=== PATIENT | male | born 1945 | race Caucasian/White ===

== ENCOUNTER 2017-04-20 05:42 | Inpatient (IN) | payer OTHER ==
--- NOTE | 2017-04-18 04:37 | GHP ---
[f rep st] PREOP HISTORY AND PHYSICAL CURRENT COMPLAINT: Right hip pain. HISTORY OF PRESENT ILLNESS: The patient is a 71-year-old male with increasing pain into his right hi p with decreasing range of motion. X-ray exam reveals chbw-sj-igor osteoarthritic changes to the hip . He wishes to have surgery in order to resolve the problem. ALLERGIES: He has no prior allergies. CURRENT MEDICATIONS: Include pravastatin. PRIOR MEDICAL PROBLEMS: Include IBS. PRIOR SURGERIES: He lists no prior surgeries. SOCIAL HISTORY: He is a former smoker. Does not take alcohol. PHYSICAL EXAM: His pupils are equal, round, and reactive to light. CHEST: Clear to auscultation. Heart has regular rate and rhythm. ABDOMEN: Soft and nontender. He has decreased motion to interna l and external rotation to a flexed hip. IMAGING STUDIES: An x-ray exam reveals hesz-pi-rzyz osteoarthritic changes to the right hip. PLAN: To take him to the operating room to undergo a right total hip arthroplasty. /[id number]/MODL
--- NOTE | 2017-04-19 21:22 | PDHPUP ---
History & Physical Update H&P update statement: This history and physical update is based on an assessment of the patient which was completed after admission or registration (within 24 hours), but prior to the surgery/procedure. H&P update: H&P reviewed & patient examined, no change in patient's condition since H&P completed
[2017-04-20] MEDS ORDERED: TRANEXAMIC ACID 3,000 MG in NS (SYRINGE) 50 ML IRR ONE (06:00)
[2017-04-20] MEDS ORDERED: ceFAZolin 2 GM/SWFI 2 GM/20 ML SYR IVP ONE (06:00)
[2017-04-20] MEDS ORDERED: PREGABALIN 150 MG CAP PO ONE (06:00)
[2017-04-20] MEDS ORDERED: ACETAMINOPHEN 500 MG TAB PO ONE (06:00)
[2017-04-20] MEDS ORDERED: ROPIVACAINE 0.2% 80 MG, EPINEPHrine 0.2 MG, KETOROLAC TROMETHAMINE 30 MG, morphINE 10 M... IU ONE (06:00)
[2017-04-20] MEDS ORDERED: LIDOCAINE 1% 2 ML INJ ID PRN (06:06)
[2017-04-20] MEDS ORDERED: LR 1,000 ML IV ONE (06:06)
[2017-04-20] MEDS ORDERED: BACITRACIN 50,000 UNITS/10 ML SYR IRR ONE (06:34)
[2017-04-20] MEDS ORDERED: CALCIUM CHLORIDE 1 GM/10 ML INJ ONE (06:34)
[2017-04-20] MEDS ORDERED: BUPIVACAINE/EPI 0.5% 30 ML SDV ONE (06:35)
[2017-04-20] MEDS ORDERED: POLYMYXIN B SULFATE 500,000 UNIT/10 ML SYR IRR ONE (06:35)
[2017-04-20] MEDS ORDERED: THROMBIN (BOVINE) 5,000 UNIT VIAL TP ONE (06:36)
[2017-04-20] MEDS ORDERED: fentaNYL 250 MCG/5 ML INJ ONE (07:04)
[2017-04-20] MEDS ORDERED: PROPOFOL/EMULSION 500 MG/50 ML BOTTLE IV ONE (07:04)
[2017-04-20] MEDS ORDERED: MIDAZOLAM 2 MG/2 ML VIAL IVP ONE (07:06)
[2017-04-20] MEDS ORDERED: MIDAZOLAM 2 MG/2 ML VIAL ONE (07:08)
[2017-04-20] MEDS ORDERED: ALBUTEROL 3 ML DEYVIAL IH PRN (07:40)
[2017-04-20] MEDS ORDERED: MEPERIDINE 25 MG/ML SYR IVP PRN (07:40)
[2017-04-20] MEDS ORDERED: DEXAMETHASONE 4 MG/ML VIAL IVP PRN (07:40)
[2017-04-20] MEDS ORDERED: METOCLOPRAMIDE 10 MG/2 ML VIAL IVP PRN ×2 (07:40→09:35)
[2017-04-20] MEDS ORDERED: ONDANSETRON 4 MG/2 ML VIAL IVP PRN ×2 (07:40→09:35)
[2017-04-20] MEDS ORDERED: HYDROCODONE/APAP 5/325 TAB PO PRN (07:40)
[2017-04-20] MEDS ORDERED: LR 500 ML IV PRN (07:40)
[2017-04-20] MEDS ORDERED: PROMETHAZINE HCL 25 MG/ML INJ IVP PRN ×2 (07:40→09:35)
[2017-04-20] MEDS ORDERED: fentaNYL 100 MCG/2 ML INJ IVP PRN (07:40)
[2017-04-20] MEDS ORDERED: HYDROmorphONE/DILAUDID 1 MG/ML INJ IVP PRN (07:40)
[2017-04-20] MEDS ORDERED: DIAZEPAM 10 MG/2 ML SYR IVP PRN (07:40)
[2017-04-20] MEDS ORDERED: OXYCODONE/APAP 5/325 TAB PO PRN (07:40)
[2017-04-20] MEDS ORDERED: NALOXONE HCL 0.4 MG/ML INJ IVP PRN (07:40)
--- NOTE | 2017-04-20 07:40 | PDANEPAE ---
ANE History of Present Illness 71 year old male for R anterior hip arthroplasty. ANE Past Medical History - Cardiovascular History Hx Hypertension: No Hx Arrhythmias: No Hx Chest Pain: No Hx Coronary Artery / Peripheral Vascular Disease: No Hx CHF / Valvular Disease: No Hx Palpitations: No Cardiovascular History Comment: LABILE BP - Pulmonary History Hx COPD: No Hx Asthma/Reactive Airway Disease: No Hx Recent Upper Respiratory Infection: No Hx Oxygen in Use at Home: No Hx Sleep Apnea: No Sleep Apnea Screening Result - Last Documented: Negative - Neurologic History Hx Cerebrovascular Accident: No Hx Seizures: No Hx Dementia: No - Endocrine History Hx Diabetes: No - Renal History Hx Renal Disorders: No - Liver History Hx Hepatic Disorders: No - Neurological & Psychiatric Hx Hx Neurological and Psychiatric Disorders: No - Cancer History Hx Cancer: Yes Cancer History Comment: SKIN CA - BASAL CELL - Congenital Disorder History Hx Congenital Disorders: No - GI History Hx Gastrointestinal Disorders: Yes Gastrointestinal History Comment: CROHN'S DISEASE - Other Health History Other Health History: NEG - Chronic Pain History Chronic Pain: Yes (HIP PAIN/LEG PAIN) - Surgical History Prior Surgeries: HETAL HERNIA ING. BOWEL RESECTION. COLONOSCOPY. EPIDURAL INJS - SPINAL ANE Review of Systems Review of systems is: negative Review of Systems: - Exercise capacity METS (RN): 5 METS ANE Patient History - Allergies Allergies/Adverse Reactions: aspirin Allergy (Verified 03/26/17 17:43) HAS CROHN'S DISEASE codeine Allergy (Verified 03/26/17 17:43) SICK TO STOMACH - Home Medications Home Medications: Ascorbic Acid [Vitamin C 500 mg (*)] 1,000 mg PO DAILY 03/27/17 [Last Taken ] Herbals/Supplements -Info Only 1 tab PO DAILY 03/27/17 [Last Taken 04/13/17] Naproxen Sodium [Aleve 220 MG (*)] 220 mg PO DAILY PRN 03/27/17 [Last Taken 2 Weeks Ago ~04/06/17] Pravastatin Sodium 20 mg PO HS 03/27/17 [Last Taken 04/18/17] - NPO status NPO Since - Liquids (Date): 04/19/17 NPO Since - Liquids (Time): 20:30 NPO Since - Solids (Date): 04/19/17 NPO Since - Solids (Time): 20:30 - Smoking Hx Smoking Status: Former smoker - Family Anes Hx Family Hx Anesthesia Complications: NEG ANE Labs/Vital Signs - Vital Signs Blood Pressure: 143/86 Heart Rate: 78 Respiratory Rate: 16 O2 Sat (%): 93 Height: 177.8 cm Weight: 75.75 kg ANE Physical Exam - Airway Neck exam: FROM Mallampati Score: Class 2 Mouth exam: normal dental/mouth exam - Pulmonary Pulmonary: no respiratory distress - Cardiovascular Cardiovascular: regular rate and rhythym - ASA Status ASA Status: II ANE Anesthesia Plan Anesthesia Plan: spinal
[2017-04-20] MEDS ORDERED: TRANEXAMIC ACID 3,000 MG/50 ML BAG IRR ONE (09:09)
[2017-04-20] MEDS ORDERED: CYCLOBENZAPRINE 10 MG TAB PO PRN (09:35)
[2017-04-20] MEDS ORDERED: ONDANSETRON DISINTEGRATING 4 MG TAB PO PRN (09:35)
[2017-04-20] MEDS ORDERED: POLYETHYLENE GLYCOL 3350 17 GM PKT PO PRN (09:35)
[2017-04-20] MEDS ORDERED: DIPHENOXYLATE/ATROPINE LOMOTIL 1 TAB PO PRN (09:35)
[2017-04-20] MEDS ORDERED: oxyCODONE IR 5 MG TAB PO PRN (09:35)
[2017-04-20] MEDS ORDERED: PROMETHAZINE HCL 25 MG SUPPR PR PRN (09:35)
[2017-04-20] MEDS ORDERED: diphenhydrAMINE 25 MG CAP PO PRN (09:35)
[2017-04-20] MEDS ORDERED: TEMAZEPAM 15 MG CAP PO PRN (09:35)
[2017-04-20] MEDS ORDERED: MAGNESIUM HYDROXIDE 30 ML UDCUP PO PRN (09:35)
[2017-04-20] MEDS ORDERED: TAPENTADOL HCL 50 MG TAB PO PRN (09:35)
[2017-04-20] MEDS ORDERED: LACTULOSE 20 GM/30 ML UDCUP PO PRN (09:35)
[2017-04-20] MEDS ORDERED: BISACODYL 10 MG SUPP PR PRN (09:35)
--- NOTE | 2017-04-20 09:35 | POSTOPPROG ---
Post Op Note Date of Operation: 04/20/17 Surgeon: Mary Arriola Silver Lap Machine Tender: coltrain Anesthesia: Epidural, IV Sedation Pre-op Diagnosis: r hip oa Procedure: r jenny with fluoro Inf/Abcess present in the surg proc area at time of surgery?: No Depth: Deep Incisional (Fascial) EBL: 100-500
[2017-04-20] MEDS ORDERED: LR 1,000 ML IV SCH (10:00)
--- NOTE | 2017-04-20 11:18 | POSTANESTH ---
Post Anesthetic Evaluation Cardiovascular Status: Normal, Stable Respiratory Status: Normal, Stable Level of Consciousness/Mental Status: Can Participate in Eval Pain Control: Adequate, Prn Tx Ordered Nausea/Vomiting Control: Adequate, Prn Tx Ordered Complications Possibly Related to Anesthesia: None Noted
[2017-04-20] MEDS: KETOROLAC 30 MG/1 ML SDV IVP PRN ×2 (12:37→21:05)
[2017-04-20] MEDS: ACETAMINOPHEN 325 MG TAB PO SCH ×2 (12:38→18:23)
[2017-04-20] MEDS: traMADol 50 MG TAB PO SCH ×2 (12:38→18:24)
[2017-04-20] MEDS: ceFAZolin 2 GM/DEXTROSE 100 ML IV SCH ×2 (14:41→20:56)
[2017-04-20] MEDS: FAMOTIDINE 20 MG TAB PO SCH (20:56)
[2017-04-20] MEDS: SENNOSIDES/DOCUSATE SODIUM TAB PO SCH ×2 (20:56→21:27)
[2017-04-20] MEDS ORDERED: PRAVASTATIN SODIUM 20 MG TAB PO SCH (21:00)
[2017-04-21] MEDS: ACETAMINOPHEN 325 MG TAB PO SCH ×3 (00:42→12:31)
[2017-04-21] MEDS: traMADol 50 MG TAB PO SCH ×4 (00:42→17:26)
[2017-04-21] MEDS ORDERED: RIVAROXABAN 10 MG TAB PO SCH (09:00)
[2017-04-21] MEDS ORDERED: ASCORBIC ACID 500 MG TAB PO SCH (09:00)
[2017-04-21] MEDS: FAMOTIDINE 20 MG TAB PO SCH (09:03)
--- NOTE | 2017-04-21 10:21 | GOP ---
[f rep st] OPERATIVE REPORT DATE OF OPERATION: 04/20/2017 SURGEON: Mary Arriola MD CABLE ASSEMBLER: Tomás Almendarez, RYDERA, LSA, whose presence was medically necessary. ANESTHESIA: By epidural plus IV sedation. PREOPERATIVE DIAGNOSIS: Right knee osteoarthritis. POSTOPERATIVE DIAGNOSIS: Right knee osteoarthritis. PROCEDURE PERFORMED: Right total hip arthroplasty with fluoroscopy. FINDINGS: INDICATIONS: This is a 71-year-old male with a long history of right hip pain worsening with use wi th time. X-ray exam reveals some dysplasia as well as swrt-ey-gofg osteoarthritic changes. He wishes to have surgery in order to resolve the problem. DESCRIPTION OF PROCEDURE: The patient was brought to the operating room after the right side had bee n identified as correct side by the patient, nurse, and physician. Once in the operating room, he was given an epidural spinal block and placed under IV sedation. He was then placed on a traction table with a well-padded peroneal post and both legs placed in appropriate leg moreland. Fluoroscopy was used to ensure proper positioning of the pelvis. Once in position, the right hip and flank were sterilely prepped and draped in the usual fashion using GSI solution. Once prepped and draped, a linear incisi on was made starting 2 cm lateral and inferior to the ASIS and heading in a 15-degree posterior direc tion, with sharp dissection carried down through the skin and subcutaneous layers, bleeding controlle d using electrocautery. The fascia overlying the TFL was identified with the muscle belly retracted l aterally. The circumflex vessels at the base of the fascial sheath were cauterized. Deeper dissection was carried down onto the hip capsule, with blunt Cobra retractors placed in the superior and inferi or portions of the hip capsule. The anterior hip capsule was excised, gaining access to the intraarti cular portion. An oscillating saw was used to cut across just above the intertrochanteric line. The l eg was now externally rotated to 40 degrees. Corkscrew was placed in the femoral head, and the femora l head was able to be removed on its own. The labrum as well as the pulvinar at the base of the aceta bulum were removed, and sequential reamers were used starting at a size 53 and then going up to a siz e 59 until achieving good bleeding bone. The 59 trial was put into place and noted to fit very secure ly. It was checked under fluoroscopy and noted to be in good position. Therefore, a size 60 Tritanium hemispheric cup from [employer] was put into place with a screw placed in superior and posterior portio ns of the cup and a manhole cover placed at its base. This position was checked under fluoroscopy, at which point a 32 x 60 ceramic liner was placed within the acetabular shell. The leg was then externa lly rotated to 90 degrees, and attention was turned to the femur. The soft tissue around the anterior and superior portions of the femoral neck were debrided off the bone, enough to release the capsule, to allow the leg to be put into extension and adduction. Medullary cavity was opened using a curette , and an osteotome was used to remove the superior portion of the femoral neck. Then, a canal finder was placed within the proximal femur, and sequential broaches were used up to a size 6 which was note d to fit securely. A trial reduction revealed adequate fill of the proximal femur. Therefore, the hip was re-dislocated and a size 6 Accolade II 127-degree neck stem was put into place and noted to fit securely. Multiple head trials were performed until achieving good stability as well as good leg gasper ths as checked on fluoroscopy. Once in position, a 32 +0 ceramic head was put into place after the tr unnion was washed and dried. Once securely in place, the hip was relocated. A joint cocktail was inje cted into the posterior portion of the capsules as well as the periosteum of the acetabulum and proxi mal femur. Tranexamic acid was then irrigated through the wound itself. Plasma gel was placed deep in to the wound, and the fascia overlying the TFL was closed using 0 Vicryl suture in a running whip sti tch, 0 Vicryl and 2-0 Vicryl sutures were then used to close the subcutaneous layers with plasma gel placed external to the tensor fascia opal. A 3-0 V-Loc suture was then used in a running subcuticular stitch to close the skin. The wound was then dressed with Steri-Strips, Xeroform, 4 x 4, and Tegader m. The patient was completely undraped in the operating room. Both legs were [facility] the [facility]. Peroneal post was removed. Leg lengths were noted to be similar. The patient was the n transferred onto a bed and sent to recovery room in good condition. /[id number]/MODL
[2017-04-21 11:40] VITALS: BP 115/65; PULSE 80; RESP 14; TEMP 97.7; O2SAT 97
[2017-04-21] MEDS: SENNOSIDES/DOCUSATE SODIUM TAB PO SCH (12:32)
--- NOTE | 2017-04-21 12:59 | SOAPPROG ---
SOAP Progress Note Assessment/Plan: Assessment: Plan: - can d/c today if he passes PT this afternoon 04/21/17 12:58 Subjective: Some slight dizziness today, feeling better this afternoon. Would like to go home. Objective: Vital Signs Temp Pulse Resp BP Pulse Ox 36.5 C 80 14 115/65 97 04/21/17 11:36 04/21/17 11:36 04/21/17 11:36 04/21/17 11:36 04/21/17 11:36 Laboratory Results 04/21/17 04:13 04/20/17 04/21/17 04/22/17 05:59 05:59 05:59 Intake Total 5750 Output Total 1100 450 Balance 4650 -450 Wound, CDI, calf NT, nvi - Time Spent With Patient Time Spent With Patient: 10 - Pending Discharge Pending Discharge Within 24 Hours: Yes Pending Discharge Within 48 Hours: No Pending Discharge Date: 04/22/17 Pending Discharge Time: 11:00 ICD10 Worksheet Patient Problems: Problems Problem Status Onset Arthritis of right hip Acute - ICD10 Problem Qualifiers (1) Arthritis of right hip
--- NOTE | 2017-04-21 13:04 | PDIAF ---
- Diagnosis Code Status: Full Code - Medication Management Discharge Medications: Medications to Continue on Transfer Ascorbic Acid [Vitamin C 500 mg (*)] 1,000 mg PO DAILY 03/27/17 [Last Taken ] Herbals/Supplements -Info Only 1 tab PO DAILY 03/27/17 [Last Taken 04/13/17] Naproxen Sodium [Aleve 220 MG (*)] 220 mg PO DAILY PRN 03/27/17 [Last Taken 2 Weeks Ago ~04/06/17] Pravastatin Sodium 20 mg PO HS 03/27/17 [Last Taken 04/18/17] Acetaminophen [Tylenol 325mg (*)] 650 mg PO Q6HRS tab 04/21/17 [Last Taken Unknown] Rivaroxaban [Xarelto 10mg (*)] 10 mg PO DAILY #14 tab 04/21/17 [Last Taken Unknown] traMADol [Ultram 50 mg (*)] 50 mg PO Q6HRS #60 tab 04/21/17 [Last Taken Unknown] Discharge Medications: Refer to the Discharge Home Medication list for PRN reason. PICC Care - Routine: N/A - Orders Services needed: Physical Therapy Diet Recommendation: no restrictions on diet Diet Texture: Regular Texture Diet Gonzalez: Not applicable Wound Care Instructions: keep dressing on, will change in office, may shower over dressing Activity/Weight Bearing Restrictions: wbat - Follow Up Care Current Providers and Referrals: Rose Mello MD [Primary Care Provider] - Mary Arriola MD [Medical Doctor] -
--- NOTE | 2017-04-21 13:54 | ASMTCMCOM ---
CM Note CM Note Notes: Pt medically stable for d/c w [facility] PT and family support. Address/phone verified. Orders to be obtained in [employer]. Date Signed: 04/21/2017 01:54 PM Electronically Signed By:KAREN Borges
--- NOTE | 2017-04-21 16:22 | ASDISCHSUM ---
Discharge Information Plan Status:Home with Home Health Medically Cleared to Leave: Discharge Date:04/21/2017 04:10 PM D/C Disposition:Home Health Service ADT D/C Disposition:Home, Routine, Self-Care Projected Discharge Date:04/21/2017 11:00 AM Transportation at D/C:Family Discharge Delay Reason: Follow-Up Date:04/21/2017 11:00 AM Discharge Slot: Final Diagnosis: Placement Information Referral Type:*Home Health Care Services Referral ID:[id number] Provider Name:[facility] Address 1:[address] [place] [address] Address 2: City:[place] Selection Factors: State:[place] Patient Contact Information Contact Name:JM Relationship: Address:[address] [place] [address] Work Phone: [facility]:[place] Alternate Phone: [facility]/Zip Code:[place] [address] Email: Financial Information Financial Class:Medicare Advantage Plans Primary Plan Desc:[facility] [employer] PLANS Primary Plan Number:[id number] Secondary Plan Desc: Secondary Plan Number: Assessment Information [facility] CM Progress Note CM Note CM Note Notes: Pt medically stable for d/c w [facility] PT and family support. Address/phone verified. Orders to be obtained in [employer]. Date Signed: 04/21/2017 01:54 PM Electronically Signed By:KAREN Borges Intervention Information
== END 2017-04-21 16:10 | disposition home or self-care (01) | DRG 470 ==
LOC: F3N 05:42
PROVIDERS: ADMIT Orthopaedic Surgery; ATTEND Orthopaedic Surgery
PROC: 0SR90JZ Replacement of Right Hip Joint with Synthetic Substitute, Open Approach (ICD-10-PCS; principal; 2017-04-20 07:15)
DX: M16.11 Unilateral primary osteoarthritis, right hip (principal); K50.90 Crohn's disease, unspecified, without complications; Z87.891 Personal history of nicotine dependence; Z85.820 Personal history of malignant melanoma of skin
CPT/HCPCS: 97116-GP; 97161-GP; 97165-GO; 97530-GP; 97535-GO; C1713; G8978-GP-CI; G8979-GP-CI; G8980-GP-CI; G8987-GO-CJ; G8988-GO-CI; J0171; J0690; J1885; J2250; J2270; J2405; J2704; J2795; J3010